=== PATIENT | male | born 1975 | race Caucasian/White ===

== ENCOUNTER 2018-12-25 10:55 | Emergency (ER) | payer SELFPAY ==
[2018-12-25 10:57] VITALS: BP 151/101; PULSE 82; RESP 16; TEMP 36.8; O2SAT 97
--- NOTE | 2018-12-25 11:14 | W.ED.GENAD ---
Discharge Plan Disposition Patient Disposition: HOME Condition: Stable Discharge Details Chief Complaint: Laceration Clinical Impression: Forearm laceration Primary Care Provider: None,None ED Provider: Juan Ventura Discharge Instructions Instructions: Acute Wound Care (ED) Additional Instructions: Continue to perform appropriate wound care and watch for signs of infection. If wound begins having any changes, pain or discomfort, purulent or odorous drainage return to emergency department for reassessment. Referrals: Primary Care Provider [Outside] (As needed for reassessment) Medical Decision Making Patient presenting to the emergency department for chief complaint of left forearm laceration. He states that this happened 2.5 weeks ago and he [place] it in [place]. Patient is unsure of tetanus status. He does state that it is been healing well in a couple days ago he noted some yellow tinge to the wound. This seems now to just appear like normal wound healing per his report but he was not sure if it was infected. Physical exam shows normal range of motion of left elbow, no bony tenderness, no tenderness to the wound, no erythema, no purulent drainage, appropriate healing eschar covering the wound with no signs of infection at this time. Distal extremity is normal. given that patient is confident his tetanus was greater than 10 years ago tetanus was ordered for patient. Otherwise I feel the patient is doing an appropriate job caring for his wound and should continue to do appropriate acute wound care and thorough signs of infection were discussed along with return precautions. After discussion of diagnosis and plan of care patient has no further needs, questions, or concerns and states clear understanding to return to the emergency department for any worsening symptoms. HPI General Mode of arrival: ambulatory. Date/Time Provider Initiated Documentation: 12/25/18 11:03. Limitations to Documentation: no limitations. Information obtained by: patient and RN notes reviewed. History of Present Illness 43 year old M presents to the emergency department with the chief complaint of left arm laceration, Quality is described as other (denies any pain. ), and is localized to the left and upper extremity. Patient started experiencing this week(s) (2.5) and it has been constant. Patient notes no other symptoms.. Patient did receive the following treatments prior to arrival, other (Topical antibiotic ointment) General Stated Complaint: Laceration CRISTIAN: 4 Review of Systems Constitutional Denies fever(s) Musculoskeletal Denies joint swelling, Denies limited range of motion, Denies radiating pain into limb and Denies stiffness Integumentary/Breasts Reports as per HPI, Denies rash, Denies skin pain and Denies skin swelling PFSH Social History Smoking/Tobacco Use Status: Never Alcohol Intake: current Alcohol Intake frequency: a few times a month Drug use: Never Substance use type: does not use Do you feel safe at home: Yes Do you feel safe in your relationship?: Yes Exam Const General: cooperative, healthy appearing, comfortable and no acute distress Orientation: alert, awake and oriented x3 Resp Effort & Inspection: normal respiratory effort and able to speak in complete sentences Extrem Left upper extremity: elbow/forearm Details: normal ROM and laceration (4cm to posterior upper forearm, healing well); no tenderness, no unusual warmth and no deformity, wrist Details: normal to inspection and hand Details: normal to inspection Course Vital Signs Temperature 36.8 C 12/25/18 10:57 Pulse 82 12/25/18 10:57 Respiratory Rate 16 12/25/18 10:57 Blood Pressure 151/101 H 12/25/18 10:57 Pulse Oximetry 97 12/25/18 10:57 Temperature 36.8 C 12/25/18 10:57 Temperature Source Tympanic 12/25/18 10:57 Pulse 82 12/25/18 10:57 Respiratory Rate 16 12/25/18 10:57 Respiratory Effort Non-Labored 12/25/18 11:04 Blood Pressure 151/101 H 12/25/18 10:57 Pulse Oximetry 97 12/25/18 10:57 Oxygen Delivery Method Room Air 12/25/18 10:57 Oxygen Flow Rate 0 12/25/18 10:57 Pain Level 1 12/25/18 10:57
--- NOTE | 2018-12-25 11:24 | ED.GENADUL_ITS ---
Discharge Plan Disposition Patient Disposition: HOME Condition: Stable Discharge Details Chief Complaint: Laceration Clinical Impression: Forearm laceration Primary Care Provider: None,None ED Provider: Juan Ventura Discharge Instructions Instructions: Acute Wound Care (ED) Additional Instructions: Continue to perform appropriate wound care and watch for signs of infection. If wound begins having any changes, pain or discomfort, purulent or odorous drainage return to emergency department for reassessment. Referrals: Primary Care Provider [Outside] (As needed for reassessment) Medical Decision Making Patient presenting to the emergency department for chief complaint of left forearm laceration. He states that this happened 2.5 weeks ago and he [place] it [place] his [place]. Patient is unsure of tetanus status. He does state that it is been healing well in a couple days ago he noted some yellow tinge to the wound. This seems now to just appear like normal wound healing per his report but he was not sure if it was infected. Physical exam shows normal range of motion of left elbow, no bony tenderness, no tenderness to the wound, no erythema, no purulent drainage, appropriate healing eschar covering the wound with no signs of infection at this time. Distal extremity is normal. given that patient is confident his tetanus was greater than 10 years ago tetanus was ordered for charo ent. Otherwise I feel the patient is doing an appropriate job caring for his wound and should continue to do appropriate acute wound care and thorough signs of infection were discussed along with return precautions. After discussion of diagnosis and plan of care patient has no further needs, questions, or concerns and states clear understanding to return to the emergency department for any worsening symptoms. HPI General Mode of arrival: ambulatory . Date/Time Provider Initiated Documentation: 12/25/18 11:03 . Limitations to Documentation: no limitations . Information obtained by: patient and RN notes reviewed . History of Present Illness 43 year old M presents to the emergency department with the chief complaint of left arm laceration, Quality is described as other (denies any pain. ), and is localized to the left and upper extremity. Patient started experiencing this week(s) (2.5) and it has been constant. Patient notes no other symptoms.. Patient did receive the following treatments prior to arrival, other (Topical antibiotic ointment) General Stated Complaint: Laceration CRISTIAN: 4 Review of Systems Constitutional Denies fever(s) Musculoskeletal Denies joint swelling, Denies limited range of motion, Denies radiating pain into limb and Denies stiffness Integumentary/Breasts Reports as per HPI, Denies rash, Denies skin pain and Denies skin swelling PFSH Social History Smoking/Tobacco Use Status: Never Alcohol Intake: current Alcohol Intake frequency: a few times a month Drug use: Never Substance use type: does not use Do you feel safe at home: Yes Do you feel safe in your relationship?: Yes Exam Const General: cooperative, healthy appearing, comfortable and no acute distress Orientation: alert, awake and oriented x3 Resp Effort & Inspection: normal respiratory effort and able to speak in complete sentences Extrem Left upper extremity: elbow/forearm Details: normal ROM and laceration (4cm to posterior upper forearm, healing well); no tenderness, no unusual warmth and no deformity, wrist Details: normal to inspection and hand Details: normal to inspection Course Vital Signs Temperature 36.8 C 12/25/18 10:57 Pulse 82 12/25/18 10:57 Respiratory Rate 16 12/25/18 10:57 Blood Pressure 151/101 H 12/25/18 10:57 Pulse Oximetry 97 12/25/18 10:57 Temperature 36.8 C 12/25/18 10:57 Temperature Source Tympanic 12/25/18 10:57 Pulse 82 12/25/18 10:57 Respiratory Rate 16 12/25/18 10:57 Respiratory Effort Non-Labored 12/25/18 11:04 Blood Pressure 151/101 H 12/25/18 10:57 Pulse Oximetry 97 12/25/18 10:57 Oxygen Delivery Method Room Air 12/25/18 10:57 Oxygen Flow Rate 0 12/25/18 10:57 Pain Level 1 12/25/18 10:57
== END 2018-12-25 11:44 | disposition home or self-care (01) ==
PROVIDERS: Emergency Provider Nurse Practitioner Family
DX: S51.812A Laceration without foreign body of left forearm, initial encounter (principal); W26.9XXA Contact with unspecified sharp object(s), initial encounter
CPT/HCPCS: 90471; 99284; 99282